=== PATIENT | female | born 1950 ===

== ENCOUNTER 2021-04-23 10:45 | Inpatient (IN) | payer OTHER ==
[~2021-04-23] VITALS: Ht 152.4 cm; Wt 99.8 kg
[2021-04-23] MEDS ORDERED: VYTORIN 10-201 EACH PO (15:28)
[2021-04-23] MEDS ORDERED: NORVASC2.5 M1 PO (15:28)
[2021-04-23] MEDS ORDERED: HYZAAR 100-12.1 EACH PO (15:28)
[2021-04-23] MEDS ORDERED: SYNTHROID112 MCG PO (15:28)
[2021-04-23] MEDS ORDERED: LUMIGAN2.5 M1 OP (15:29)
[2021-04-23] MEDS ORDERED: PATADAY2.5 ML OP (15:29)
[2021-04-23] MEDS ORDERED: DITROPAN XL10 MG PO (15:30)
[2021-04-23] MEDS ORDERED: PROAIR HFA8.5 GM IH (15:30)
[2021-05-02] MEDS ORDERED: ELIQUIS2.5 MG PO (07:41)
[2021-05-02] MEDS ORDERED: PERCOCET 5-3251 EACH PO (07:41)
[2021-05-02] MEDS ORDERED: DUI500 PO (07:41)
== END 2021-05-02 17:50 | DRG 470 ==
LOC: O/R 04-29 05:35 → SURH 04-29 09:30 → SURG 04-29 13:05 → O/R 04-29 16:28 → SURG 04-30 11:42
PROVIDERS: ADMIT Orthopaedic Surgery; ATTEND Orthopaedic Surgery
PROC: 0SRC0J9 Replacement of Right Knee Joint with Synthetic Substitute, Cemented, Open Approach (ICD-10-PCS; principal; 2021-04-29 09:30)
DX: M17.11 Unilateral primary osteoarthritis, right knee (principal); M22.11 Recurrent subluxation of patella, right knee; E66.01 Morbid (severe) obesity due to excess calories; J45.909 Unspecified asthma, uncomplicated; E03.8 Other specified hypothyroidism